=== PATIENT | male | born 1955 | race Caucasian/White ===

== ENCOUNTER 2019-11-07 09:09 | Emergency (ER) | payer OTHER ==
[~2019-11-07] VITALS: Ht 182.9 cm; Wt 90.7 kg
[2019-11-07 09:09] VITALS: BP_SYST 139
[2019-11-07] MEDS ORDERED: BACITRACIN 1 GM OINT TP ONE (09:45)
[2019-11-07] MEDS ORDERED: LIDOCAINE 1% 10 MG/ML, 20 ML MDV SUBCUT ONE (09:45)
[2019-11-07] MEDS ORDERED: DIPH-TET-PERTUS Vaccine 0.5 ML VIAL (ADACEL) I.M. ONE ×2 (09:45→12:11)
[2019-11-07 11:35] VITALS: BP_SYST 140
== END 2019-11-07 11:39 | disposition home or self-care (01) ==
LOC: SED 09:09
DX: S81.811A Laceration without foreign body, right lower leg, initial encounter (principal); W45.8XXA Other foreign body or object entering through skin, initial encounter; Y93.89 Activity, other specified; Y92.89 Other specified places as the place of occurrence of the external cause; Y99.8 Other external cause status
CPT/HCPCS: 12004; 90471; 90715; 99283; J2001